=== PATIENT | male | born 1980 | race Caucasian/White ===

== ENCOUNTER 2024-05-03 23:27 | Emergency (ER) | payer MEDICAID ==
[~2024-05-03] VITALS: Ht 182.9 cm; Wt 90.7 kg
[2024-05-04 00:02] VITALS: BP 124/83; TEMP 98
[2024-05-04] MEDS ORDERED: LIDOCAINE 1% INJ 50 ML MDV IJ ONE (00:06)
[2024-05-04] MEDS ORDERED: AMOX-430 PO (00:11)
[2024-05-04] MEDS ORDERED: AMOX/CLAVULANATE 875 MG TABLET ONE (00:24)
[2024-05-04] MEDS: AMOX/CLAVULANATE 875 MG TABLET PO ONE (00:27)
[2024-05-04 00:28] VITALS: O2SAT 97
== END 2024-05-04 00:29 | disposition home or self-care (01) ==
LOC: ER 23:44
DX: S01.551A Open bite of lip, initial encounter (principal); S01.511A Laceration without foreign body of lip, initial encounter; W54.0XXA Bitten by dog, initial encounter; Y93.89 Activity, other specified; Y92.89 Other specified places as the place of occurrence of the external cause; Y99.8 Other external cause status
CPT/HCPCS: 12011; 99283; J3490